=== PATIENT | male | born 1950 | race Caucasian/White ===

== ENCOUNTER 2024-07-29 21:04 | Inpatient (IN) ==
[2024-07-29] MEDS ORDERED: IOPAMIDOL 100 ML BOTTLE IV ONE (21:05)
[2024-07-29] MEDS: 0.9 % SODIUM CHLORIDE 1,000 ML IV ONE (21:52)
[2024-07-29 21:56] LABS: Basophils # (Auto) 0.02 K/mcL (0.00-0.30); Basophils % (Auto) 0.3 % (0.0-2.0); Eosinophils # (Auto) 0.13 K/mcL (0.00-0.70); Eosinophils % (Auto) 1.8 % (0.0-7.0); Hematocrit 43.9 % (40.1-51.0); Hemoglobin 14.8 g/dL (13.7-17.5); Lymphocytes # (Auto) 1.02 K/mcL (1.50-4.80); Lymphocytes % (Auto) 14.1 % (15.5-49.0); Mean Cell Volume 96.5 fL (80.0-100.0); Mean Corpuscular HGB Conc 33.7 g/dL (31.0-36.0); Mean Platelet Volume 9.8 fL (8.8-12.5); Monocytes % (Auto) 9.7 % (1.0-12.0); Neutrophils % (Auto) 73.5 % (38.0-78.0); Platelet Count 304 K/mcL (140-440); RBC 4.55 M/mcL (4.63-6.08); WBC 7.2 K/mcL (4.5-11.0)
[2024-07-29 22:14] LABS: Prothrombin Time 13.8 sec (11.9-14.5)
[2024-07-29 22:20] LABS: ALT/SGPT 19 U/L (<40); AST/SGOT 28 U/L (<40); Albumin 3.5 gm/dL (3.2-5.2); Albumin/Globulin Ratio 1.2 (1.0-2.3); Alkaline Phosphatase 63 U/L (39-117); Bilirubin,Total 0.5 mg/dL (0.1-1.0); Blood Urea Nitrogen 18 mg/dL (8-23); Calcium 9.1 mg/dL (8.6-10.4); Carbon Dioxide 20 mmol/L (22-30); Chloride 108 mmol/L (96-108); Globulin 2.9 gm/dL (2.2-3.7); Glomerular Filtration Rate 89; Glucose 181 mg/dL (70-105); Potassium 3.8 mmol/L (3.3-5.1); Sodium 140 mmol/L (133-145)
[2024-07-29] MEDS: SODIUM CHLORIDE IV ONE (22:39)
[2024-07-30] MEDS ORDERED: ONDANSETRON 4 MG/2 ML VIAL IV PRN (01:37)
[2024-07-30] MEDS: ACETAMINOPHEN 325 MG TABLET PO PRN (03:44)
[2024-07-30] MEDS: ACETAMINOPHEN 325 MG TABLET PO ONE (04:16)
[2024-07-30] MEDS: 0.9 % SODIUM CHLORIDE 10 ML SYRINGE IV SCH (05:28)
[2024-07-30] MEDS: DOCUSATE SODIUM 100 MG CAPSULE PO SCH (08:43)
[2024-07-30 09:25] LABS: Appearance,Urine CLEAR (Clear); Bilirubin,Urine Negative (Negative); Color,Urine YELLOW; Glucose,Urine (UA) Negative (Negative); Ketones,Urine Negative (Negative); Leukocyte Esterase,Urine Negative /uL (Negative); Mucus,Urine FEW /hpf; Nitrate,Urine Negative (Negative); Protein,Urine Negative (Negative); Specific Gravity,Urine 1.045 (1.000-1.035); Urine Blood Negative (Negative); Urine Budding Yeast MOD /hpf; Urine RBC 0 /hpf (0-3); Urine Squamous Epithelial Cell 0 /hpf (0-4); Urine WBC 0 /hpf (0-4); Urobilinogen,Urine Negative
[2024-07-30 09:49] LABS: Amphetamine Screen,Urine None detected; Barbiturate Screen,Urine None detected; Benzodiazepines Screen,Urine Suspect positive; Cannabinoid Screen,Urine None detected; Cocaine Screen,Urine None detected; Fentanyl, Urine Screen None Detected; Opiate Screen,Urine None detected; Oxycodone, Urine Screen None detected; Phencyclidine Screen,Urine None detected
[2024-07-30] MEDS: SENNOSIDES 1 TABLET PO SCH (19:02)
[2024-07-31 06:37] LABS: Thyroid Stimulating Hormone 6.73 uIU/mL (0.27-5.01)
[2024-07-31 06:37] LABS: ALT/SGPT 15 U/L (<40); AST/SGOT 24 U/L (<40); Albumin 3.1 gm/dL (3.2-5.2); Albumin/Globulin Ratio 1.1 (1.0-2.3); Alkaline Phosphatase 53 U/L (39-117); Bilirubin,Direct 0.3 mg/dL (<0.3); Bilirubin,Total 0.7 mg/dL (0.1-1.0); Blood Urea Nitrogen 13 mg/dL (8-23); Calcium 8.5 mg/dL (8.6-10.4); Carbon Dioxide 19 mmol/L (22-30); Chloride 110 mmol/L (96-108); Globulin 2.7 gm/dL (2.2-3.7); Glomerular Filtration Rate 94; Glucose 100 mg/dL (70-105); Lactate Dehydrogenase 166 U/L (135-225); Phosphorous 3.6 mg/dL (2.5-4.5); Potassium 4.1 mmol/L (3.3-5.1); Sodium 141 mmol/L (133-145); Triglycerides 100 mg/dL (<150); Uric Acid 6.5 mg/dL (2.5-8.0)
[2024-07-31 07:00] LABS: Estimated Average Glucose(eAG) 111 mg/dL; Hemoglobin A1C 5.5 % Hgb (4.0-6.0)
[2024-07-31] MEDS: MELATONIN 3 MG TABLET PO PRN (23:55)
[2024-08-01] MEDS: ASPIRIN 81 MG TAB.CHEW PO SCH (09:16)
[2024-08-01] MEDS: LEVOTHYROXINE 88 MCG TABLET PO SCH (09:16)
[2024-08-02] MEDS ORDERED: MECLIZINE 25 MG TABLET PO PRN (08:43)
[2024-08-03] MEDS: traZODone HCL 50 MG TABLET PO PRN (20:08)
[2024-08-04] MEDS: APIXABAN 5 MG TABLET PO SCH (08:32)
[2024-08-04] MEDS ORDERED: METOPROLOL TARTRATE 25 MG TABLET PO SCH (09:00)
[2024-08-04] MEDS ORDERED: diphenhydrAMINE 25 MG CAPSULE PO PRN (14:34)
[2024-08-04] MEDS: ACETAMINOPHEN 500 MG TABLET PO PRN (19:55)
[2024-08-05] MEDS: DOXYLAMINE SUCCINATE 25 MG PO PRN (20:18)
[2024-08-05] MEDS: MELATONIN 3 MG TABLET PO SCH (20:18)
[2024-08-05] MEDS: diphenhydrAMINE 25 MG CAPSULE PO SCH (23:12)
[2024-08-08 07:08] LABS: Alprazolam, Urine Negative (Cutoff=100); Clonazepam Confirm, Urine 538 ng/mL (Cutoff=100); Clonazepam, Urine Positive; Flurazepam, Urine Negative (Cutoff=100); Lorazepam, Urine Negative (Cutoff=100); Midazolam, Urine Negative (Cutoff=100); Nordiazepam, Urine Negative (Cutoff=100); Oxazepam, Urine Negative (Cutoff=100); Temazepam, Urine Negative (Cutoff=100); Triazolam, Urine Negative (Cutoff=100)
[2024-08-08] MEDS ORDERED: diphenhydrAMINE 25 MG CAPSULE PO PRN (08:50)
[2024-08-08] MEDS ORDERED: DOXYLAMINE SUCCINATE 25 MG PO SCH (09:00)
== END 2024-08-08 12:38 | DRG 57 ==
LOC: ED 21:04 → MEDSUR 21:04
PROVIDERS: ADMIT Internal Medicine; ATTEND Internal Medicine

== ENCOUNTER 2024-11-19 01:15 | Inpatient (IN) ==
[2024-11-19] MEDS ORDERED: IOPAMIDOL 100 ML BOTTLE IV ONE (01:16)
[2024-11-19 01:41] LABS: Basophils # (Auto) 0.01 K/mcL (0.00-0.30); Basophils % (Auto) 0.1 % (0.0-2.0); Eosinophils # (Auto) 0 K/mcL (0.00-0.70); Eosinophils % (Auto) 0 % (0.0-7.0); Hematocrit 40.2 % (40.1-51.0); Hemoglobin 13.4 g/dL (13.7-17.5); Lymphocytes % (Auto) 7.1 % (15.5-49.0); Mean Cell Volume 94.8 fL (80.0-100.0); Mean Corpuscular HGB Conc 33.3 g/dL (31.0-36.0); Mean Platelet Volume 9.2 fL (8.8-12.5); Monocytes # (Auto) 0.92 K/mcL (0.10-0.90); Monocytes % (Auto) 8.1 % (1.0-12.0); Neutrophils % (Auto) 84.4 % (38.0-78.0); Platelet Count 350 K/mcL (140-440); RBC 4.24 M/mcL (4.63-6.08); WBC 11.3 K/mcL (4.5-11.0)
[2024-11-19] MEDS: hydrOXYzine 25 MG TABLET PO ONE (02:30)
[2024-11-19] MEDS: LACTATED RINGERS 1,000 ML IV ONE (02:31)
[2024-11-19] MEDS ORDERED: ONDANSETRON 4 MG/2 ML VIAL IV PRN (02:56)
[2024-11-19] MEDS ORDERED: ACETAMINOPHEN 325 MG TABLET PO PRN (02:56)
[2024-11-19 03:09] LABS: ALT/SGPT 17 U/L (<40); AST/SGOT 19 U/L (<40); Albumin 3.3 gm/dL (3.2-5.2); Alkaline Phosphatase 63 U/L (39-117); Bilirubin,Total 0.3 mg/dL (0.1-1.0); Blood Urea Nitrogen 19 mg/dL (8-23); Calcium 9.3 mg/dL (8.6-10.4); Carbon Dioxide 18 mmol/L (22-30); Chloride 107 mmol/L (96-108); Globulin 3.2 gm/dL (2.2-3.7); Glomerular Filtration Rate 88; Glucose 165 mg/dL (70-105); Potassium 4.5 mmol/L (3.3-5.1); Sodium 137 mmol/L (133-145)
[2024-11-19] MEDS: LEVOFLOXACIN 750 MG/150 ML BAG IV SCH (03:55)
[2024-11-19] MEDS: LACTATED RINGERS 1,000 ML IV SCH (03:55)
[2024-11-19] MEDS: IPRATROPIUM/ALBUTEROL 3 ML AMPUL.NEB NEB ONE (03:55)
[2024-11-19] MEDS ORDERED: IPRATROPIUM 2.5 ML AMPUL.NEB NEB SCH (07:00)
[2024-11-19] MEDS: IPRATROPIUM/ALBUTEROL 3 ML AMPUL.NEB NEB PRN (07:02)
[2024-11-19] MEDS: 0.9 % SODIUM CHLORIDE 10 ML SYRINGE IV SCH ×2 (07:54→14:25)
[2024-11-19] MEDS: MAG HYDROX/AL HYDROX/SIMETH 30 ML ORAL.SUSP PO SCH (08:53)
[2024-11-19] MEDS ORDERED: METOCLOPRAMIDE 10 MG/2 ML VIAL IV PRN (09:12)
[2024-11-19] MEDS ORDERED: POTASSIUM CHLORIDE 20 MEQ TABLET PO PRN ×2 (09:12)
[2024-11-19] MEDS ORDERED: SENNOSIDES 1 TABLET PO PRN (09:12)
[2024-11-19] MEDS ORDERED: MAGNESIUM SULFATE 2 GM/50 ML BAG IV PRN (09:12)
[2024-11-19] MEDS ORDERED: POLYETHYLENE GLYCOL 3350 17 GM PACKET PO PRN (09:12)
[2024-11-19] MEDS ORDERED: BISMUTH SUBSALICYLATE 15 ML ORAL.SUSP PO PRN (09:12)
[2024-11-19] MEDS ORDERED: POTASSIUM CHLORIDE 40 MEQ in DEXTROSE 5% IN WATER 500 ML IV PRN (09:12)
[2024-11-19] MEDS: guaiFENesin/CODEINE 10 ML UDC PO PRN (09:30)
[2024-11-19] MEDS: APIXABAN 5 MG TABLET PO SCH (09:30)
[2024-11-19] MEDS: diphenhydrAMINE 25 MG CAPSULE PO PRN (09:30)
[2024-11-19] MEDS: MAG HYDROX/AL HYDROX/SIMETH 30 ML ORAL.SUSP PO PRN (12:07)
[2024-11-19] MEDS: DOCUSATE SODIUM 100 MG CAPSULE PO SCH (19:44)
[2024-11-19] MEDS: MELATONIN 3 MG TABLET PO SCH (19:44)
[2024-11-20 06:14] LABS: Basophils # (Auto) 0.02 K/mcL (0.00-0.30); Basophils % (Auto) 0.3 % (0.0-2.0); Eosinophils # (Auto) 0.31 K/mcL (0.00-0.70); Eosinophils % (Auto) 4.1 % (0.0-7.0); Hematocrit 39.5 % (40.1-51.0); Hemoglobin 12.9 g/dL (13.7-17.5); Lymphocytes # (Auto) 1.83 K/mcL (1.50-4.80); Mean Cell Volume 97.3 fL (80.0-100.0); Mean Corpuscular HGB Conc 32.7 g/dL (31.0-36.0); Monocytes # (Auto) 0.81 K/mcL (0.10-0.90); Monocytes % (Auto) 10.6 % (1.0-12.0); Neutrophils % (Auto) 60.6 % (38.0-78.0); Platelet Count 319 K/mcL (140-440); RBC 4.06 M/mcL (4.63-6.08); Red Cell Distribution Width 13.2 % (11.5-14.5); WBC 7.6 K/mcL (4.5-11.0)
[2024-11-20 06:43] LABS: ALT/SGPT 16 U/L (<40); AST/SGOT 18 U/L (<40); Alkaline Phosphatase 52 U/L (39-117); Bilirubin,Direct < 0.2 mg/dL (0-0.3); Bilirubin,Total 0.4 mg/dL (0.1-1.0); Blood Urea Nitrogen 17 mg/dL (8-23); C-Reactive Protein 1.18 mg/dL (0.03-0.80); Calcium 8.9 mg/dL (8.6-10.4); Carbon Dioxide 26 mmol/L (22-30); Chloride 105 mmol/L (96-108); Globulin 2.9 gm/dL (2.2-3.7); Glomerular Filtration Rate 88; Glucose 88 mg/dL (70-105); Lactate Dehydrogenase 138 U/L (135-225); Phosphorous 3.9 mg/dL (2.5-4.5); Sodium 140 mmol/L (133-145); Triglycerides 118 mg/dL (<150); Uric Acid 6.2 mg/dL (2.5-8.0)
[2024-11-20] MEDS ORDERED: traZODone HCL 50 MG TABLET PO PRN (09:39)
[2024-11-20] MEDS: METOPROLOL TARTRATE 5 MG/5 ML VIAL IV PRN (20:11)
[2024-11-20] MEDS: diphenhydrAMINE 25 MG CAPSULE PO SCH (20:12)
[2024-11-20] MEDS: BENZONATATE 100 MG CAPSULE PO PRN (22:03)
[2024-11-21 06:32] LABS: Basophils # (Auto) 0.04 K/mcL (0.00-0.30); Basophils % (Auto) 0.5 % (0.0-2.0); Eosinophils % (Auto) 6.1 % (0.0-7.0); Hematocrit 45.8 % (40.1-51.0); Hemoglobin 15.1 g/dL (13.7-17.5); Lymphocytes # (Auto) 1.44 K/mcL (1.50-4.80); Lymphocytes % (Auto) 17.6 % (15.5-49.0); Mean Cell Volume 95.6 fL (80.0-100.0); Mean Platelet Volume 9.8 fL (8.8-12.5); Monocytes # (Auto) 1.05 K/mcL (0.10-0.90); Monocytes % (Auto) 12.8 % (1.0-12.0); Neutrophils % (Auto) 62.5 % (38.0-78.0); Platelet Count 367 K/mcL (140-440); RBC 4.79 M/mcL (4.63-6.08); WBC 8.2 K/mcL (4.5-11.0)
[2024-11-21 07:04] LABS: C-Reactive Protein 1.17 mg/dL (0.03-0.80)
[2024-11-21 07:15] LABS: Blood Urea Nitrogen 18 mg/dL (8-23); Calcium 9.6 mg/dL (8.6-10.4); Carbon Dioxide 25 mmol/L (22-30); Chloride 102 mmol/L (96-108); Glomerular Filtration Rate 88; Glucose 93 mg/dL (70-105); Potassium 4.6 mmol/L (3.3-5.1); Sodium 138 mmol/L (133-145)
[2024-11-21] MEDS ORDERED: LEVOFLOXACIN 750 MG TABLET PO SCH (09:00)
== END 2024-11-21 11:57 | disposition left against medical advice (07) | DRG 194 ==
LOC: ED 01:15 → MEDSUR 07:20
PROVIDERS: ADMIT Internal Medicine; ATTEND Student in an Organized Health Care Education/Training Program